=== PATIENT | female | born 1940 | race Caucasian/White ===

== ENCOUNTER 2017-09-24 11:30 | Outpatient (CLI) | payer MEDICARE, BC ==
[2017-09-24] MEDS ORDERED: Iopamidol 370 76% 100 ML VIAL ONE (17:20)
== END 2017-09-24 11:31 | disposition home or self-care (01) ==
LOC: BICCT 11:30
PROVIDERS: ATTEND Urology
DX: N28.1 Cyst of kidney, acquired (principal); R31.0 Gross hematuria; N20.0 Calculus of kidney
CPT/HCPCS: 74170

== ENCOUNTER 2018-03-22 15:39 | Outpatient (CLI) | payer MEDICARE, BC | END 2018-03-22 15:40 | disposition home or self-care (01) | LOC: BICMAMMO 15:39 | PROVIDERS: ATTEND Obstetrics & Gynecology | DX: Z12.31 Encounter for screening mammogram for malignant neoplasm of breast (principal); Z80.3 Family history of malignant neoplasm of breast | CPT/HCPCS: 77063; 77067 ==

== ENCOUNTER 2019-03-29 10:55 | Outpatient (CLI) | payer MEDICARE, BC ==
--- NOTE | 2019-03-29 13:32 | MMO ---
Bilateral MAMMO Bilat Screen [facility]. CLINICAL HISTORY: Patient is 78 years old and is seen for screening. The patient has the following family history of breast cancer: mother. The patient has no personal history of cancer. The patient has a history of left Excisional Biopsy in 1992 - benign and left Cyst Aspiration in 1992 - benign. VIEWS: The views performed were: bilateral craniocaudal with tomosynthesis and bilateral mediolateral oblique with tomosynthesis. FILMS COMPARED: The present examination has been compared to prior imaging studies performed at [facility] on 02/22/2015, 03/03/2016, 03/17/2017 and 03/22/2018. MAMMOGRAM FINDINGS: There are scattered fibroglandular densities. Finding 1: There are stable benign appearing calcifications seen in both breasts. Finding 2: There are stable benign appearing densities seen in both breasts. There are no suspicious masses, suspicious calcifications, or new areas of architectural distortion. IMPRESSION: THERE IS NO MAMMOGRAPHIC EVIDENCE OF MALIGNANCY. A ROUTINE FOLLOW-UP MAMMOGRAM IN 1 YEAR IS RECOMMENDED. THE RESULTS OF THIS EXAM WERE SENT TO THE PATIENT. ACR BI-RADS Category 2 - Benign finding MAMMOGRAPHY NOTE: 1. A negative mammogram report should not delay a biopsy if a dominant of clinically suspicious mass is present. 2. Approximately 10% to 15% of breast cancers are not detected by mammography. 3. Adenosis and dense breasts may obscure an underlying neoplasm. Reported by: KATHY MALDONADO MD Electonically Signed: [id number]
== END 2019-03-29 10:56 | disposition home or self-care (01) ==
LOC: BICMAMMO 10:55
PROVIDERS: ATTEND Obstetrics & Gynecology
DX: Z12.31 Encounter for screening mammogram for malignant neoplasm of breast (principal); Z80.3 Family history of malignant neoplasm of breast; Z91.89 Other specified personal risk factors, not elsewhere classified
CPT/HCPCS: 77063; 77067

== ENCOUNTER 2019-08-23 05:43 | Day surgery (SDC) | payer MEDICARE ==
[2019-08-22 11:55] VITALS: BMI 25.7
[2019-08-23] MEDS ORDERED: Iothalamate Meglumine 60% 50 ML VIAL FS ONE (06:45)
[2019-08-23 07:07] LABS: Hemoglobin 14.6 g/dL (12.0-16.0); Mean Corpuscular HGB CONC 33.4 g/dL (32.0-36.0); Mean Corpuscular Hemoglobin 30.4 pg (27.0-31.0); Mean Corpuscular Volume 91.2 fL (78.0-98.0); Mean Platelet Volume 8.9 fL (7.4-10.4); Platelet Count 221 thou/uL (130-400); RBC Distribution Width 12.2 % (11.5-14.5); Red Blood Cell (RBC) Count 4.78 mill/uL (4.20-5.40); White Blood Cell (WBC) Count 8.2 thou/uL (4.8-10.8)
[2019-08-23 07:08] LABS: Platelet Count 221 thou/uL (130-400)
[2019-08-23] MEDS ORDERED: Famotidine/PF 20 mg/2ml Vial ONE (07:18)
[2019-08-23] MEDS ORDERED: Fentanyl 100 MCG/2 ML VIAL ONE (07:18)
[2019-08-23 07:23] LABS: PTT 33.7 SEC (22.9-36.1); Prothrombin Time 12.7 SEC (12.0-14.7)
[2019-08-23 07:28] LABS: EPI 79 SEC (67-199)
[2019-08-23 07:37] LABS: Anion Gap 13 mmol/L (10-20); BUN (Urea Nitrogen) 31 mg/dL (9.8-20.1); Calc. Creatinine Clearance 45 mL/min (70-130); Calcium 8.9 mg/dL (7.8-10.44); Carbon Dioxide 21 mmol/L (23-31); Chloride 108 mmol/L (98-107); Estimated GFR-MDRD 45; Glucose 95 mg/dL (83-110); Potassium 5.1 mmol/L (3.5-5.1); Sodium 137 mmol/L (136-145)
--- NOTE | 2019-08-23 09:28 | OP ---
DATE OF PROCEDURE: 08/23/2019 PREOPERATIVE DIAGNOSIS: Right renal stone. POSTOPERATIVE DIAGNOSIS: Right renal stone. PROCEDURE PERFORMED: Right extracorporeal shockwave lithotripsy. ANESTHETIC: General. ESTIMATED BLOOD LOSS: Not recorded. FINDINGS: There is an 8- to 9-mm right renal stone, that was treated with a total of 2500 shocks at maximum kV level of 5. It did appear to fragment well. Stent was not placed. DESCRIPTION OF PROCEDURE: After obtaining written and verbal consent from the patient, after documenting normal preoperative blood work, she was taken to the operating suite. She was placed in the supine position on the treatment table. PlexiPulses were placed on her lower extremities and turned on. She was given a general anesthetic and oral obturator intubation. She was coupled to the lithotripsy unit. The stone was placed in treatment focal point. Shockwave therapy was commenced. After a couple of 100 shocks, a 5-minute pause was given. We then slowly brought the kV at the level 4 for a few 100 and then up to the level 5 for couple 100, back to level 4, alternating level 4 and level 5 a couple 100 at a time until 2500 shocks were obtained. We used fluoroscopy intermittently to document stone fragmentation and reposition as necessary. She did have some trouble with cardiac ectopy and was gaited to the unit after about 300 shocks and she had no more issues after that. At the end of 2500 shocks, the procedure was terminated. She was awakened, extubated, and taken by stretcher to the recovery room. Job ID: [id number]
[2019-08-23] MEDS ORDERED: Dexamethasone 20 MG/5 ML VIAL ONE (09:29)
[2019-08-23] MEDS ORDERED: PROPOFOL 200 MG/20 ML VIAL ONE (09:29)
[2019-08-23] MEDS ORDERED: Lidocaine 1% PF 5 ML VIAL ONE (09:29)
[2019-08-23] MEDS ORDERED: Ondansetron PF 4 MG/2 ML Vial ONE (09:29)
[2019-08-23] MEDS ORDERED: ePHEDrine/0.9% NaCl/PF SYRINGE 50 mg/10 ml ONE (09:29)
== END 2019-08-23 11:07 | disposition home or self-care (01) ==
LOC: SDC 05:43
PROVIDERS: ATTEND Urology
PROC: 0TF3XZZ Fragmentation in Right Kidney Pelvis, External Approach (ICD-10-PCS; principal; 2019-08-23)
DX: N20.0 Calculus of kidney (principal); I10 Essential (primary) hypertension; E78.5 Hyperlipidemia, unspecified; Z86.73 Personal history of transient ischemic attack (TIA), and cerebral infarction without residual deficits; Z79.82 Long term (current) use of aspirin; Z79.899 Other long term (current) drug therapy
CPT/HCPCS: 36415; 80048; 85027; 85576; 85610; 85730; 93005; 93010; J1100; J2001; J2405; J2704; J3010; S0028

== ENCOUNTER 2019-09-20 05:52 | Day surgery (SDC) | payer MEDICARE, BC ==
[2019-09-19 10:43] VITALS: BMI 27.8
[2019-09-20] MEDS ORDERED: Famotidine/PF 20 mg/2ml Vial ONE (06:51)
[2019-09-20] MEDS ORDERED: Fentanyl 100 MCG/2 ML VIAL ONE (06:57)
[2019-09-20] MEDS ORDERED: Midazolam HCl 2 mg/2 ml Vial ONE (06:58)
--- NOTE | 2019-09-20 07:36 | RAD ---
ONE VIEW ABDOMEN: HISTORY: Preoperative exam. COMPARISON: None. FINDINGS: Nonspecific bowel gas pattern. No suspicious densities project over the left or right renal silhouett e or along the course of either ureter. Calcifications in the left and right hemipelvis are presumably phleboliths. IMPRESSION: No radiographic evidence of nephrolithiasis or ureterolithiasis. Transcribed Date/Time: 09/20/2019 8:01 AM
--- NOTE | 2019-09-20 11:17 | OP ---
DATE OF PROCEDURE: 09/20/2019 PREOPERATIVE DIAGNOSIS: Right ureteral stone. POSTOPERATIVE DIAGNOSIS: Right ureteral stone. PROCEDURES PERFORMED: Right extracorporeal shockwave lithotripsy. ANESTHESIA: General. ESTIMATED BLOOD LOSS: Not recorded. FINDINGS: There was a 4 to 5 mm fragment remaining in the proximal ureter from a prior right renal ESWL a few weeks ago. It was treated with 2700 shocks at maximum kV level of 5. Most of the procedure was done alternating 4 and level 5. It did appear to fragment well. The stent was not placed. OPERATIVE TECHNIQUE: Obtained written and verbal consent from the patient after identifying the stone on a preop KUB, she was taken to the operating suite. She was placed in the supine position on the treatment table. PlexiPulses were placed on her lower extremities and turned on. The stone was visualized with a fluoroscopic unit and placed in the treatment focal point. Shockwave therapy was then commenced after she had been coupled to the lithotripsy unit. Fluoroscopy was used intermittently document stone fragmentation and reposition as necessary. After 2700 shocks, there were no sizable fragments remaining. The procedure was terminated. She was awakened, extubated, and taken by stretcher to recovery room. Job ID: [id number]
[2019-09-20] MEDS ORDERED: PHENYLEPHRINE-NS 100 MCG/ML 10 ML SYRINGE ONE (12:34)
[2019-09-20] MEDS ORDERED: diphenhydrAMINE 50 MG/ML VIAL ONE (12:34)
[2019-09-20] MEDS ORDERED: PROPOFOL 200 MG/20 ML VIAL ONE (12:34)
[2019-09-20] MEDS ORDERED: EPHEDRINE 25 MG/5 ML SYRINGE ONE (12:34)
[2019-09-20] MEDS ORDERED: Dexamethasone 20 MG/5 ML VIAL ONE (12:34)
[2019-09-20] MEDS ORDERED: Ondansetron PF 4 MG/2 ML Vial ONE (12:34)
== END 2019-09-20 10:25 | disposition home or self-care (01) ==
LOC: SDC 05:52
PROVIDERS: ATTEND Urology
PROC: 0TF6XZZ Fragmentation in Right Ureter, External Approach (ICD-10-PCS; principal; 2019-09-20)
DX: N20.1 Calculus of ureter (principal); I10 Essential (primary) hypertension
CPT/HCPCS: 74018; J2250; J3010; S0028

== ENCOUNTER 2021-05-20 10:15 | Outpatient (CLI) | payer MEDICARE | END 2021-05-20 10:16 | disposition home or self-care (01) | LOC: BICMAMMO 10:15 | PROVIDERS: ATTEND Obstetrics & Gynecology | DX: Z12.31 Encounter for screening mammogram for malignant neoplasm of breast (principal); Z80.3 Family history of malignant neoplasm of breast; Z91.89 Other specified personal risk factors, not elsewhere classified | CPT/HCPCS: 77063; 77067 ==

== ENCOUNTER 2022-05-25 12:27 | Outpatient (CLI) | payer MEDICARE | END 2022-05-25 12:28 | disposition home or self-care (01) | LOC: BICMAMMO 12:27 | PROVIDERS: ATTEND Obstetrics & Gynecology | DX: Z12.31 Encounter for screening mammogram for malignant neoplasm of breast (principal); Z80.3 Family history of malignant neoplasm of breast; Z91.89 Other specified personal risk factors, not elsewhere classified | CPT/HCPCS: 77063; 77067 ==

== ENCOUNTER 2023-06-30 13:33 | Outpatient (CLI) | payer MEDICARE | END 2023-06-30 13:34 | disposition home or self-care (01) | LOC: BICMAMMO 13:33 | PROVIDERS: ATTEND Family Medicine | DX: Z12.31 Encounter for screening mammogram for malignant neoplasm of breast (principal); Z80.3 Family history of malignant neoplasm of breast; Z91.89 Other specified personal risk factors, not elsewhere classified | CPT/HCPCS: 77063; 77067 ==

== ENCOUNTER 2024-02-22 08:08 | Outpatient (CLI) | payer MEDICARE | END 2024-02-22 08:09 | disposition home or self-care (01) | LOC: BICCT 08:08 | PROVIDERS: ATTEND Family Medicine | DX: R10.32 Left lower quadrant pain (principal); K57.30 Diverticulosis of large intestine without perforation or abscess without bleeding | CPT/HCPCS: 74176; 82565 ==

== ENCOUNTER 2024-02-23 14:16 | Inpatient (IN) | payer MEDICARE ==
[2024-02-23 15:06] VITALS: BMI 26.1
[2024-02-23] MEDS ORDERED: Nitroglycerin 0.4 MG TAB (25 Tab Bottle) SL PRN (15:58)
[2024-02-23] MEDS ORDERED: Ondansetron PF 4 MG/2 ML Vial IVP PRN (15:59)
[2024-02-23] MEDS ORDERED: Calcium Carbonate 500 MG ChewTAB PO PRN (15:59)
[2024-02-23] MEDS ORDERED: Ondansetron ODT 4 MG TAB PO PRN (15:59)
[2024-02-23] MEDS ORDERED: Acetaminophen 325 MG TAB PO PRN (15:59)
[2024-02-23 17:11] LABS: Troponin I Less than 0.010 ng/mL (< 0.028)
[2024-02-23 19:05] LABS: Troponin I 0.011 ng/mL (< 0.028)
[2024-02-23] MEDS: Amlodipine 5 MG TAB PO SCH (21:43)
[2024-02-23] MEDS: Pantoprazole DR 40 MG TAB PO SCH (21:44)
[2024-02-24 04:49] LABS: Phosphorus 2.9 mg/dL (2.3-4.7)
[2024-02-24 04:53] LABS: Anion Gap 12 mmol/L (10-20); BUN (Urea Nitrogen) 22 mg/dL (9.8-20.1); Calc. Creatinine Clearance 37 mL/min (70-130); Calcium 8.8 mg/dL (7.8-10.44); Carbon Dioxide 23 mmol/L (23-31); Chloride 110 mmol/L (98-107); Estimated GFR 41; Glucose 101 mg/dL (83-110); Magnesium 2.2 mg/dL (1.6-2.6); Potassium 4.3 mmol/L (3.5-5.1); Sodium 141 mmol/L (136-145)
[2024-02-24] MEDS ORDERED: Aspirin Chewable 81 MG TAB PO SCH (09:00)
[2024-02-24] MEDS: Colestipol 1 GM TAB PO SCH (09:37)
[2024-02-24] MEDS: Aspirin 81 mg Enteric Coated Tablet PO SCH (09:37)
[2024-02-24 11:29] LABS: #Basophils 0.04 10x3/uL (0.0-0.2); %Basophils 0.5 % (0.0-1.0); %Eosinophils 3.4 % (0.0-10.0); %Lymphocytes 25.8 % (21.0-51.0); %Monocytes 8.9 % (0.0-10.0); %Neutrophils 61.1 % (42.0-75.0); Hematocrit 44.4 % (36.0-47.0); Mean Corpuscular HGB CONC 33.8 g/dL (32.0-36.0); Mean Corpuscular Hemoglobin 29.5 pg (27.0-31.0); Mean Corpuscular Volume 87.2 fL (78.0-98.0); Mean Platelet Volume 10.5 fL (7.4-10.4); Platelet Count 225 10x3/uL (130-400); RBC Distribution Width 13.1 % (11.5-14.5); Red Blood Cell (RBC) Count 5.09 mill/uL (4.20-5.40)
[2024-02-24 11:45] LABS: ALT (SGPT) 13 U/L (8-55); AST (SGOT) 18 U/L (5-34); Albumin 3.6 g/dL (3.4-4.8); Alkaline Phosphatase 74 U/L (40-110); Anion Gap 12 mmol/L (10-20); BUN (Urea Nitrogen) 19 mg/dL (9.8-20.1); Bilirubin, Total 0.4 mg/dL (0.2-1.2); Calc. Creatinine Clearance 38 mL/min (70-130); Calcium 9.4 mg/dL (7.8-10.44); Carbon Dioxide 22 mmol/L (23-31); Chloride 109 mmol/L (98-107); Estimated GFR 42; Globulin 3.5 g/dL (2.4-3.5); Glucose 100 mg/dL (83-110); Potassium 4.3 mmol/L (3.5-5.1); Protein, Total 7.1 g/dL (5.8-8.1); Sodium 139 mmol/L (136-145)
[2024-02-24 11:50] LABS: Troponin I Less than 0.010 ng/mL (< 0.028)
[2024-02-24] MEDS ORDERED: hydrALAZINE 20 MG/ML VIAL SLOW IVP PRN (15:11)
[2024-02-24 16:12] VITALS: TEMP 98.3
[2024-02-24 17:11] LABS: Bacteria/HPF None Seen HPF (None Seen); Bilirubin Negative (Negative); Blood, Urine Negative (Negative); CAUTI Indications for Culture Alt mental st,lethar; Clarity Clear (Clear); Glucose, Urine (Dipstick) Normal (Negative); Ketone, Urine Negative (Negative); Leukocyte Negative Leu/uL (Negative); Nitrite Negative (Negative); Protein, Urine (Dipstick) Negative (Neg-Trace); RBC/HPF 0-3 HPF (0-3); Specific Gravity, Urine 1.008 (1.002-1.036); Squamous Epithelial 0-3 HPF (0-3); Urobilinogen Normal mg/dL (Less than 2); WBC/HPF 0-3 HPF (0-3)
[2024-02-24 17:17] LABS: Urine Culture Reflex No No
[2024-02-24] MEDS ORDERED: Amlodipine 5 MG TAB PO SCH (21:00)
[2024-02-25 07:34] LABS: #Basophils 0.04 10x3/uL (0.0-0.2); %Basophils 0.6 % (0.0-1.0); %Eosinophils 5.1 % (0.0-10.0); %Lymphocytes 31.4 % (21.0-51.0); %Neutrophils 52.8 % (42.0-75.0); Hematocrit 46.2 % (36.0-47.0); Hemoglobin 15.6 g/dL (12.0-16.0); Mean Corpuscular HGB CONC 33.8 g/dL (32.0-36.0); Mean Corpuscular Hemoglobin 29.7 pg (27.0-31.0); Mean Corpuscular Volume 87.8 fL (78.0-98.0); Mean Platelet Volume 10.3 fL (7.4-10.4); Platelet Count 212 10x3/uL (130-400); Red Blood Cell (RBC) Count 5.26 mill/uL (4.20-5.40)
[2024-02-25 08:00] LABS: ALT (SGPT) 13 U/L (8-55); AST (SGOT) 18 U/L (5-34); Albumin 3.6 g/dL (3.4-4.8); Alkaline Phosphatase 69 U/L (40-110); Anion Gap 12 mmol/L (10-20); BUN (Urea Nitrogen) 19 mg/dL (9.8-20.1); Bilirubin, Total 0.7 mg/dL (0.2-1.2); Calc. Creatinine Clearance 37 mL/min (70-130); Calcium 9.6 mg/dL (7.8-10.44); Carbon Dioxide 23 mmol/L (23-31); Chloride 107 mmol/L (98-107); Estimated GFR 42; Globulin 3.4 g/dL (2.4-3.5); Glucose 100 mg/dL (83-110); Potassium 3.9 mmol/L (3.5-5.1); Sodium 138 mmol/L (136-145)
[2024-02-25] MEDS: Amlodipine 5 MG TAB PO SCH ×2 (16:34→16:35)
[2024-02-25 16:36] VITALS: BP 173/75
[2024-02-26] MEDS ORDERED: Amlodipine 10 MG TAB PO SCH (09:00)
== END 2024-02-25 18:22 | disposition home or self-care (01) | DRG 312 ==
LOC: SURG B 14:16 → INTOOBSV 14:16 → 2NO 17:34 → OBSVTOIN 02-24 11:51
PROVIDERS: ADMIT Internal Medicine; ATTEND Family Medicine
DX: R55 Syncope and collapse (principal); N17.9 Acute kidney failure, unspecified; R00.1 Bradycardia, unspecified; N18.30 Chronic kidney disease, stage 3 unspecified; I12.9 Hypertensive chronic kidney disease with stage 1 through stage 4 chronic kidney disease, or unspecified chronic kidney disease; E78.5 Hyperlipidemia, unspecified; K21.9 Gastro-esophageal reflux disease without esophagitis; Z79.82 Long term (current) use of aspirin; Z79.899 Other long term (current) drug therapy; Z86.73 Personal history of transient ischemic attack (TIA), and cerebral infarction without residual deficits; I35.0 Nonrheumatic aortic (valve) stenosis; R10.32 Left lower quadrant pain; K57.30 Diverticulosis of large intestine without perforation or abscess without bleeding
CPT/HCPCS: 36415; 70450; 74176; 80048; 80053; 81001; 82565; 83735; 84100; 84443; 84484; 85025; 93306; 93880; 94760; G0378